=== PATIENT | male | born 1975 | race Two or more races ===

== ENCOUNTER 2020-06-07 17:43 | Emergency (ER) | payer MEDICAID ==
[2020-06-07] MEDS ORDERED: LORazepam 1 MG Tab PO ONE (18:15)
--- NOTE | 2020-06-07 18:36 | EDM.PDOC ---
ED HPI GENERAL MEDICAL PROBLEM - General Time Seen by Provider: 06/07/20 18:15 Source of Information: Reports: Patient History Limitations: Reports: No Limitations - History of Present Illness INITIAL COMMENTS - FREE TEXT/NARRATIVE: Pt. presents to ER with complaints of anxiety. Pt. states that he has a history of anxiety and PTSD. He recently started a new job here in [place]. He states that he started Mavyret (glecaprevir/pibrentasvir) for hep c and started the drug this AM. He states that he began feeling chest tightness and racing heart this afternoon when he was getting groceries. Pt. states that he has a history of panic attacks in the past, and states that this is similar to what how he has felt previously. Denies any current chest pain or shortness of breath. Onset Date: 06/07/20 Location: Reports: Generalized - Related Data Allergies Allergy/AdvReac Type Severity Reaction Status Date / Time No Known Allergies Allergy Verified 06/07/20 18:11 Home Meds: Home Meds . [No Known Home Meds] 06/07/20 [History] ED ROS GENERAL - Review of Systems Review Of Systems: See Below Constitutional: Reports: No Symptoms HEENT: Reports: No Symptoms Respiratory: Reports: No Symptoms Cardiovascular: Reports: No Symptoms Endocrine: Reports: No Symptoms GI/Abdominal: Reports: No Symptoms : Reports: No Symptoms Musculoskeletal: Reports: No Symptoms Skin: Reports: No Symptoms Neurological: Reports: No Symptoms Psychiatric: Reports: No Symptoms Hematologic/Lymphatic: Reports: No Symptoms Immunologic: Reports: No Symptoms ED EXAM, GENERAL - Physical Exam Exam: See Below Exam Limited By: No Limitations General Appearance: Alert, WD/WN, No Apparent Distress Eye Exam: Bilateral Eye: EOMI, PERRL Nose: Normal Inspection, Normal Mucosa, No Blood Throat/Mouth: Normal Inspection, Normal Lips, Normal Teeth, Normal Gums, Normal Oropharynx, Normal Voice, No Airway Compromise Head: Atraumatic, Normocephalic Neck: Normal Inspection, Supple, Non-Tender, Full Range of Motion Respiratory/Chest: No Respiratory Distress, Lungs Clear, Normal Breath Sounds, No Accessory Muscle Use, Chest Non-Tender Cardiovascular: Normal Peripheral Pulses, Regular Rate, Rhythm, No Edema, No Gallop, No JVD, No Murmur, No Rub Peripheral Pulses: 4+: Radial (L) GI/Abdominal: Soft, Non-Tender, No Distention (Male) Exam: Deferred Rectal (Males) Exam: Deferred Extremities: Normal Inspection, Normal Range of Motion, Non-Tender, No Pedal Edema, Normal Capillary Refill Neurological: Alert, Oriented, CN II-XII Intact, Normal Cognition, Normal Gait, Normal Reflexes, No Motor/Sensory Deficits Psychiatric: Normal Affect, Normal Mood Skin Exam: Warm, Dry, Intact, Normal Color Course - Vital Signs Last Recorded V/S: Last Vital Signs Temp 36.9 C 06/07/20 17:50 Pulse 75 06/07/20 17:50 Resp 16 06/07/20 17:50 BP 116/58 L 06/07/20 17:50 Pulse Ox 98 06/07/20 17:50 - Orders/Labs/Meds Labs: Laboratory Tests 06/07/20 06/07/20 Range/Units 18:24 18:24 WBC 5.4 (4.0-10.0) x10^3/uL RBC 5.02 (4.5-6.0) x10^6/uL Hgb 15.4 (14.0-18.0) g/dL Hct 43.9 (40.0-52.0) % MCV 87.5 (78.0-93.0) fL MCH 30.7 (26.0-32.0) pg MCHC 35.1 (32.0-36.0) g/dL RDW Coeff of Dee 12.6 (10.0-15.0) % Plt Count 192 (130-400) x10^3/uL Neut % (Auto) 45.9 L (50.0-80.0) % Lymph % (Auto) 35.4 (25.0-50.0) % [place] % (Auto) 13.4 H (2.0-11.0) % Eos % (Auto) 4.7 H (0.0-4.0) % Baso % (Auto) 0.6 (0.2-1.2) % Sodium 138 (136-145) mmol/L Potassium 3.6 (3.5-5.1) mmol/L Chloride 99 (98-107) mmol/L Carbon Dioxide 29 (21-32) mmol/L Anion Gap 13.6 (10-20) mmol/L BUN 10 (7-18) mg/dL Creatinine 1.3 (0.70-1.30) mg/dL Est Cr Clr Drug Dosing TNP Estimated GFR (MDRD) 60 Glucose 99 (74-106) mg/dL Calcium 8.6 (8.5-10.1) mg/dL Corrected Calcium 8.60 (8.5-10.1) mg/dL Magnesium 1.9 (1.8-2.4) mg/dL Total Bilirubin 0.4 (0.2-1.0) mg/dL AST 294 H (15-37) U/L ALT 780 H (16-63) U/L Alkaline Phosphatase 80 (46-116) U/L Troponin I < 0.017 (<=0.056) ng/mL Total Protein 8.2 (6.4-8.2) g/dL Albumin 4.0 (3.4-5.0) g/dL Globulin 4.2 Albumin/Globulin Ratio 0.95 TSH, Ultra Sensitive 1.022 (0.358-3.74) uIU/mL Meds: Medications Discontinued Medications Generic Name Dose Route Start Last Admin Trade Name Freq PRN Reason Stop Dose Admin Lorazepam 1 mg 06/07/20 18:15 06/07/20 18:19 Ativan PO 06/07/20 18:16 1 mg ONETIME ONE Administration Lorazepam 1 packet 06/07/20 19:07 Take Home: Lorazepam 0.5 Mg, 2 Tab Pack PO 06/07/20 19:08 ONETIME ONE Departure - Departure Time of Disposition: 19:13 Disposition: Home, Self-Care 01 Clinical Impression: Anxiety - Discharge Information Instructions: Panic Attack, [id number], Lorazepam tablets Referrals: PCP,None [Primary Care Provider] - Forms: ED Department Discharge Additional Instructions: Ativan 0.5mg 1 three times daily as needed for anxiety Establish care locally. [facility] [phone] (attached to hospital) [facility] (on [address]) [phone] Sepsis Event Note (ED) - Focused Exam Vital Signs: Vital Signs Temp Pulse Resp BP Pulse Ox 06/07/20 17:50 36.9 C 75 16 116/58 L 98 - Problem List Review Problem List Initiated/Reviewed/Updated: Yes - Assessment/Plan Plan: Pt. was started on a short course of ativan. He states that he has been on buspar in the past but stopped taking it, as a friend reacted unfavorably to it. Advised to establish care locally and discuss long-term treatment of his anxiety. The new medication that he started today doesn't appear to have a high incidence of anxiety associated with it. Advised him to continue with medication for now. Return to ER if he has recurrent racing of heart, palpitations, chest pain, etc.
[2020-06-07 18:57] LABS: CHLORIDE,CL 99 mmol/L (98-107); SODIUM,NA 138 mmol/L (136-145)
[2020-06-07 18:58] LABS: ANION GAP 13.6 mmol/L (10-20)
[2020-06-07] MEDS ORDERED: Take Home: LORazepam 0.5 MG Tab, 2 Tab Pack PO ONE (19:07)
== END 2020-06-07 19:25 | disposition home or self-care (01) ==
LOC: VM.ED 17:43
DX: F41.9 Anxiety disorder, unspecified (principal)
CPT/HCPCS: 36415; 80053; 83735; 84443; 84484; 85025; 93005; 99283; 99283-25; A9270-GY

== ENCOUNTER 2020-07-18 18:18 | Emergency (ER) | payer MEDICAID ==
[2020-07-18] MEDS: Take Home: LORazepam 0.5 MG Tab, 2 Tab Pack PO ONE (18:42)
--- NOTE | 2020-07-18 18:54 | EDM.PDOC ---
ED HPI GENERAL MEDICAL PROBLEM - General Chief Complaint: Behavioral/Psych Stated Complaint: PANIC ATTACK Time Seen by Provider: 07/18/20 18:23 Source of Information: Reports: Patient, RN History Limitations: Reports: No Limitations - History of Present Illness INITIAL COMMENTS - FREE TEXT/NARRATIVE: Pt. presents to ER with complaints of panic attack. Pt. has a history of severe anxiety, PTSD, and history of alcoholism (currently in remission). Pt. states that this afternoon he was undergoing treatment with his counselor for PTSD which caused him to be extremely anxious. He complains of feeling shaky, and has pressure in his chest consistent with past anxiety attacks. He denies any suicidal ideation. No plan to harm himself. He also Denies any homicidal thoughts. He has not recently been ill. No fever or chills. Pt. states he ran out of his lorazepam 2 days ago. Onset: Today Onset Date: 07/18/20 Location: Reports: Generalized - Related Data Allergies Allergy/AdvReac Type Severity Reaction Status Date / Time No Known Allergies Allergy Verified 06/07/20 18:11 Home Meds: Home Meds LORazepam [Ativan] 0.5 mg PO ASDIRECTED PRN 07/18/20 [History] busPIRone [Buspar] 10 mg PO DAILY 07/18/20 [History] Past Medical History Psychiatric History: Reports: Anxiety, PTSD Social & Family History - Tobacco Use Tobacco Use Status *Q: Never Tobacco User ED ROS GENERAL - Review of Systems Review Of Systems: Comprehensive ROS is negative, except as noted in HPI. ED EXAM, GENERAL - Physical Exam Exam: See Below Exam Limited By: No Limitations General Appearance: Alert, WD/WN, No Apparent Distress Respiratory/Chest: No Respiratory Distress, Lungs Clear, Normal Breath Sounds, No Accessory Muscle Use, Chest Non-Tender Cardiovascular: Normal Peripheral Pulses, Regular Rate, Rhythm, No Edema, No Gallop, No JVD, No Murmur, No Rub Neurological: Alert, Oriented, CN II-XII Intact, Normal Cognition, Normal Gait, Normal Reflexes, No Motor/Sensory Deficits Psychiatric: Anxious Course - Vital Signs Last Recorded V/S: Last Vital Signs Temp 36.7 C 07/18/20 18:23 Pulse 79 07/18/20 18:23 Resp 18 07/18/20 18:23 BP 133/95 H 07/18/20 18:23 Pulse Ox 100 11/02/20 18:23 - Orders/Labs/Meds Meds: Medications Discontinued Medications Generic Name Dose Route Start Last Admin Trade Name Latisha CHAPA Reason Stop Dose Admin Lorazepam 2 packet 07/18/20 18:34 Take Home: Lorazepam 0.5 Mg, 2 Tab Pack PO 07/18/20 18:35 ONETIME ONE Departure - Departure Time of Disposition: 18:57 Disposition: Home, Self-Care 01 Clinical Impression: Panic disorder - Discharge Information Instructions: Panic Attack, [id number], Lorazepam tablets Forms: ED Department Discharge Additional Instructions: Ativan 0.5mg 1 tab three times daily as needed for anxiety Follow-up with Dr. Nidhi MARTINI regarding a refill Continue with your current medications Sepsis Event Note (ED) - Evaluation Sepsis Screening Result: No Definite Risk - Focused Exam Vital Signs: Vital Signs Temp Pulse Resp BP Pulse Ox 07/18/20 18:23 36.7 C 79 18 133/95 H 100 - Problem List Review Problem List Initiated/Reviewed/Updated: Yes - Assessment/Plan Plan: Ativan 0.5mg 1 tab three times daily as needed for anxiety Follow-up with Dr. Nidhi MARTINI regarding a refill Continue with your current medications
== END 2020-07-18 18:45 | disposition home or self-care (01) ==
LOC: VM.ED 18:18
DX: F41.0 Panic disorder [episodic paroxysmal anxiety] (principal); Z79.899 Other long term (current) drug therapy
CPT/HCPCS: 99283; A9270-GY

== ENCOUNTER 2020-12-08 12:21 | Emergency (ER) | payer MEDICAID ==
--- NOTE | 2020-12-08 13:24 | EDM.PDOC ---
ED HPI GENERAL MEDICAL PROBLEM - General Chief Complaint: Lower Extremity Injury/Pain Stated Complaint: Sore Foot Time Seen by Provider: 12/08/20 12:45 Source of Information: Reports: Patient History Limitations: Reports: No Limitations - History of Present Illness INITIAL COMMENTS - FREE TEXT/NARRATIVE: Patient comes emergency department today with complaints of pain to his left Achilles tendon. This patient for the last year has had very painful area in his Achilles tendon. 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 Yesterday he noticed that there was a small amount of what he relates as a bulge just above his heel on his Achilles. He does not recall any specific injury to it. He is concerned that he is getting an Achilles rupture. He has had cortisone injections in his Achilles in the past. This was many years ago. He has not been evaluated for this pain that he has had in the last year. He denies any paresthesias or difficulty with ambulation. 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 ED EXAM, GENERAL - Physical Exam Exam: See Below Exam Limited By: No Limitations General Appearance: Alert, WD/WN, No Apparent Distress Respiratory/Chest: No Respiratory Distress Cardiovascular: Normal Peripheral Pulses Extremities: Normal Range of Motion, Normal Capillary Refill. No: Normal Inspection (Exam is isolated to the left lower extremity. He is able to plantar and dorsiflex his foot appropriately. About 6 inches up from the Achilles insertion site on the heel there is a small area that is tender and appears to be a partial injury to the Achilles tendon. Is no bruising swelling ecchymos), Pedal Edema, Joint Swelling Neurological: Alert, Oriented Psychiatric: Normal Affect, Normal Mood Skin Exam: Warm, Dry, Intact, Normal Color, No Rash Course - Vital Signs Last Recorded V/S: Last Vital Signs Temp 98.3 F 12/08/20 12:41 Pulse 71 12/08/20 12:41 Resp 16 12/08/20 12:41 BP 115/49 L 12/08/20 12:41 Pulse Ox 97 12/08/20 12:41 - Re-Assessments/Exams Free Text/Narrative Re-Assessment/Exam: This does appear to be a partial tendon rupture of the Achilles not complete. I do not feel that any x-rays at this time would change her management. Physical therapy will be important for him and I refer him to them today. I would also like him to putting in a walking boot. He also needs to take some time off of his very strenuous physical exercise because he is a "athlete". Tylenol ibuprofen and ice for pain. And rest. He is comfortable with this plan his questions were answered. As of note the patient was given a walking boot but refused to put it on in the emergency department despite me telling him to put it on multiple times and he states he will put it on later today. Departure - Departure Time of Disposition: 13:11 Disposition: Home, Self-Care 01 Clinical Impression: Achilles tendon tear Qualifiers: Encounter type: initial encounter Laterality: left Qualified Code(s): S86.012A - Strain of left Achilles tendon, initial encounter - Discharge Information Instructions: Pain Medicine Instructions, [id number] Referrals: Amie Terrell MD [Primary Care Provider] - Forms: ED Department Discharge Additional Instructions: Wear the walking boot at all times. Decrease the strenuous activity such as exercise. Ice to the sore area as much as possible. Tylenol and or Ibuprofen as needed for pain. See ortho in 1 week for recheck. Self refer yourself to Physical therapy today before you leave for treatment of this injury. Return to the ED if new or worsening symptoms. Follow up with ortho in a week. Sepsis Event Note (ED) - Evaluation Sepsis Screening Result: No Definite Risk - Focused Exam Vital Signs: Vital Signs Temp Pulse Resp BP Pulse Ox 03/25/21 12:41 98.3 F 71 16 115/49 L 97
== END 2020-12-08 13:29 | disposition home or self-care (01) ==
LOC: VM.ED 12:21 → SUPCPDRO 12:21 → VM.ED 13:29
DX: S86.022A Laceration of left Achilles tendon, initial encounter (principal); X58.XXXA Exposure to other specified factors, initial encounter
CPT/HCPCS: 99283

== ENCOUNTER 2021-02-28 17:41 | Emergency (ER) | payer MEDICAID ==
--- NOTE | 2021-02-28 18:12 | EDM.PDOC ---
ED HPI GENERAL MEDICAL PROBLEM - General Chief Complaint: Respiratory Problem Stated Complaint: COUGH AND SOB Time Seen by Provider: 02/28/21 17:50 Source of Information: Reports: Patient - History of Present Illness INITIAL COMMENTS - FREE TEXT/NARRATIVE: Patient presents the ER wanting to be checked for pneumonia secondary to his cough that has been going on for the last 4 days he states he has went from a clear to yellowish phlegm and it hurts when he takes a deep breath or cough. He also states has had decreased energy level and just felt fatigued over the last 2 days. He has had a history of pneumonia about 1 year ago and states he feels about the same way as it did then. He is working out of town about an hour each way and did not have time to get to his primary care provider. He has no other complaints at this time he has been eating and drinking normally no fevers or chills drinking plenty of water secondary to working outside usually 10 to 12 hours a day. Duration: Day(s): Associated Symptoms: Reports: Cough, cough w sputum. 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 Denies: Fever, Chills, Malaise, Weakness, Night Sweats HEENT: Reports: No Symptoms Respiratory: Reports: Cough, Sputum. Denies: Shortness of Breath, Wheezing, P leuritic Chest Pain Cardiovascular: Reports: No Symptoms Endocrine: Reports: No Symptoms GI/Abdominal: Reports: No Symptoms : Reports: No Symptoms Musculoskeletal: Reports: No Symptoms Skin: Reports: No Symptoms Neurological: Reports: No Symptoms Psychiatric: Reports: No Symptoms Hematologic/Lymphatic: Reports: No Symptoms Immunologic: Reports: No Symptoms ED EXAM, GENERAL - Physical Exam Exam: See Below Exam Limited By: No Limitations General Appearance: Alert, WD/WN, No Apparent Distress Eye Exam: Bilateral Eye: Normal Inspection, PERRL Ears: Normal External Exam, Normal Canal, Hearing Grossly Normal, Normal TMs Nose: Normal Inspection, Normal Mucosa, No Blood Throat/Mouth: Normal Inspection, Normal Lips, Normal Teeth, Normal Gums, Normal Oropharynx, Normal Voice, No Airway Compromise, Other (Mild postnasal drip noted in line uvula no erythema no cryptic tonsils) Head: Atraumatic, Normocephalic Neck: Normal Inspection, Supple, Non-Tender, Full Range of Motion Respiratory/Chest: No Respiratory Distress, Lungs Clear, Normal Breath Sounds, No Accessory Muscle Use, Chest Non-Tender Cardiovascular: Normal Peripheral Pulses, Regular Rate, Rhythm, No Edema, No Gallop, No JVD, No Murmur, No Rub GI/Abdominal: Normal Bowel Sounds, Soft, Non-Tender, No Organomegaly, No Distention, No Abnormal Bruit, No Mass Extremities: Normal Inspection, Normal Range of Motion, Non-Tender, No Pedal Edema Neurological: Alert, Oriented, CN II-XII Intact, Normal Cognition, Normal Gait Psychiatric: Normal Affect, Normal Mood Skin Exam: Warm, Dry, Intact, Normal Color, No Rash Course - Vital Signs Text/Narrative:: Chest x-ray no blood work was drawn secondary to patient having normal vital signs and a normal exam chest x-ray was only taken secondary to the patient working out of town [address] and not able to get back with his primary care provider. I do believe this is viral in nature. Last Recorded V/S: Last Vital Signs Temp 36.7 C 02/28/21 17:48 Pulse 75 02/28/21 17:48 Resp 18 02/28/21 17:48 BP 131/97 H 02/28/21 17:48 Pulse Ox 98 02/28/21 17:48 - Orders/Labs/Meds Orders: Active Orders 24 hr Category Date Time Status Chest 2V [CR] Stat Exams 02/28/21 18:04 Taken Departure - Departure Time of Disposition: 19:30 Disposition: Home, Self-Care 01 Condition: Good Clinical Impression: Cough, Fatigue - Discharge Information *PRESCRIPTION DRUG MONITORING PROGRAM REVIEWED*: No *COPY OF PRESCRIPTION DRUG MONITORING REPORT IN PATIENT ERICKA: No Forms: ED Department Discharge Sepsis Event Note (ED) - Evaluation Sepsis Screening Result: No Definite Risk - Focused Exam Vital Signs: Vital Signs Temp Pulse Resp BP Pulse Ox 02/28/21 17:48 36.7 C 75 18 131/97 H 98 - Problem List & Annotations (1) Cough SNOMED Code(s): 95309671 Code(s): R05 - COUGH Status: Acute Current Visit: Yes (2) Fatigue SNOMED Code(s): 14440318 Code(s): R53.83 - OTHER FATIGUE Status: Acute Current Visit: Yes - My Orders Last 24 Hours: My Active Orders 02/28/21 18:04 Chest 2V [CR] Stat - Assessment/Plan Last 24 Hours: My Active Orders 02/28/21 18:04 Chest 2V [CR] Stat
--- NOTE | 2021-02-28 20:07 | CR ---
[id number] RAD/RAD Chest PA And Lateral EXAM: FRONTAL AND LATERAL CHEST INDICATION: PNEUMONIA? COMPARISON: None. DISCUSSION: The heart and lungs are normal in appearance. IMPRESSION: 1. Negative exam. Cecil Segal MD 02/28/[id number] Thank you for allowing us to participate in the care of your patient.
== END 2021-02-28 19:47 | disposition home or self-care (01) ==
LOC: VM.ED 17:41
DX: R05 Cough (principal); R53.83 Other fatigue
CPT/HCPCS: 71046; 99283; 99283-25

== ENCOUNTER 2021-04-18 18:03 | Emergency (ER) | payer MEDICAID, OTHER ==
--- NOTE | 2021-04-18 18:31 | EDM.PDOC ---
ED HPI GENERAL MEDICAL PROBLEM - General Stated Complaint: deep laceration of the hand. Time Seen by Provider: 04/18/21 18:19 Source of Information: Reports: Patient History Limitations: Reports: No Limitations - History of Present Illness INITIAL COMMENTS - FREE TEXT/NARRATIVE: Patient comes emergency department today with what he relates as a very deep severe laceration to the left palm of his hand. At approximately 1500 hrs. today the patient was at work when he was working with some metal he did not have his gloves on when he sustained a very deep severe laceration on the left palm of his hands where he could see the soft tissue on the inside of his hand. His last tetanus immunization he believes is 2 to 3 years ago. This did happen approximately 3 hours ago but he wanted to finish work for the day until he came to the emergency department. He denies any paresthesias to his left hand. No change in the functionality of his left hand. - Related Data Allergies Allergy/AdvReac Type Severity Reaction Status Date / Time No Known Allergies Allergy Verified 02/28/21 17:56 Home Meds: Home Meds LORazepam [Ativan] 0.5 mg PO ASDIRECTED PRN 07/18/20 [History] busPIRone [Buspar] 10 mg PO DAILY 07/18/20 [History] Past Medical History Psychiatric History: Reports: Anxiety, PTSD Review of Systems - Review of Systems Review Of Systems: Comprehensive ROS is negative, except as noted in HPI. ED EXAM, GENERAL - Physical Exam Exam: See Below Exam Limited By: No Limitations General Appearance: Alert, WD/WN, Anxious Respiratory/Chest: No Respiratory Distress Cardiovascular: Normal Peripheral Pulses Peripheral Pulses: 2+: Radial (L), Radial (R) Extremities: Other (The rest of the hand is atraumatic. He is able to flex and extend at the DIP PIP and him MCP joints of all the hand. CMS is intact appropriately.). No: Normal Inspection (On the palmar surface of the left hand there is a very superficial linear laceration that does not extend into the dermis. It only involves the epidermis. It is approximately 4 cm in length. It does not extend past he epidermis. There is no bleeding there is no gapping. ) Course - Re-Assessments/Exams Free Text/Narrative Re-Assessment/Exam: 04/18/21 18:29 It is almost difficult to identify this laceration that the patient explains as deep and severe into the tissue. Upon my examination this is a very superficial laceration that does not extend past the epidermis. There is no bleeding. There is no gaping. I am unable to separate any aspect concerning for a deep laceration of the hand. 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 This is very superficial laceration that barely even extends past the epidermis. It is almost more of a linear abrasion. Due to the patient's work I applied Dermabond to the area more to keep it free of debris. This will heal very well on its own. His tetanus immunization was verified his last in 2019. Discharge instructions as below are explained the patient is comfortable with this plan his questions were answered. Departure - Departure Time of Disposition: 18:24 Disposition: Home, Self-Care 01 Clinical Impression: Superficial laceration of hand Qualifiers: Encounter type: initial encounter Laterality: left Qualified Code(s): S61.412A - Laceration without foreign body of left hand, initial encounter - Discharge Information Instructions: Laceration Care, Adult, [id number], Tissue Adhesive Wound Care, [id number] Additional Instructions: Leave the Dermabond alone. Do not pull off or pick at it. Do not get the dermabond wet it will come off on its own. Do not pull it off. Trim it off while it is pealing. Watch for signs of infection. Follow up as needed.
== END 2021-04-18 18:30 | disposition home or self-care (01) ==
LOC: VM.ED 18:03
DX: S61.412A Laceration without foreign body of left hand, initial encounter (principal); W22.8XXA Striking against or struck by other objects, initial encounter; Y92.89 Other specified places as the place of occurrence of the external cause; Y99.0 Civilian activity done for income or pay
CPT/HCPCS: 12002; 99282; 99282-25

== ENCOUNTER 2023-03-01 20:13 | Emergency (ER) | payer MEDICAID | END 2023-03-01 20:49 | disposition home or self-care (01) | LOC: VM.ED 20:13 | DX: S71.111A Laceration without foreign body, right thigh, initial encounter (principal); W26.8XXA Contact with other sharp object(s), not elsewhere classified, initial encounter | CPT/HCPCS: 99282; 99283 ==